=== PATIENT | female | born 1995 | race Two or more races ===

== ENCOUNTER 2025-07-01 23:59 | Emergency (ER) | payer MEDICAID ==
[~2025-07-01] VITALS: Ht 162.6 cm; Wt 63.6 kg
[2025-07-02 01:00] VITALS: BP 141/92; PULSE 102; RESP 18; TEMP 98.9; O2SAT 98
[2025-07-02] MEDS ORDERED: ACET500T58 PO (01:08)
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
== END 2025-07-02 01:22 | disposition home or self-care (01) ==
LOC: ER 23:59
DX: S39.012A Strain of muscle, fascia and tendon of lower back, initial encounter (principal); V43.52XA Car driver injured in collision with other type car in traffic accident, initial encounter; Y93.89 Activity, other specified; Y92.410 Unspecified street and highway as the place of occurrence of the external cause; Y99.8 Other external cause status